=== PATIENT | female | born 1970 | race American Indian/Alaskan Native ===

== ENCOUNTER 2017-07-09 06:07 | Inpatient (IN) | payer OTHER ==
[2017-07-07 08:37] VITALS: BMI 36.0
[2017-07-09 07:02] LABS: BASO # 0.1 K/uL (0.0-0.2); BASO % 2.1 % (0.0-2.0); EOS # 0.2 K/uL (0.0-0.7); HEMOGLOBIN 12.9 g/dL (12.0-16.0); LYMPH # 1.4 K/uL (1.0-4.3); LYMPH % 22.2 % (20.0-40.0); MEAN CELL VOLUME 88.3 fl (81.0-99.0); MEAN CORPUSCULAR HEMOGLOBIN 28.9 pg (27.0-31.0); MEAN CORPUSCULAR HGB CONC 32.7 g/dL (33.0-37.0); MEAN PLATELET VOLUME 8.4 fl (7.2-11.7); MONO # 0.7 K/uL (0.0-0.8); MONO % 11.2 % (0.0-10.0); NEUT # 3.9 K/uL (1.8-7.0); NEUT % 61.5 % (50.0-75.0); RBC 4.45 Mil/uL (3.80-5.20); RED CELL DISTRIBUTION WIDTH 15.2 % (11.5-14.5); WHITE BLOOD COUNT 6.4 K/uL (4.8-10.8)
[2017-07-09 07:11] LABS: BLOOD UREA NITROGEN 18 mg/dl (7-17); CALCIUM 9.7 mg/dL (8.4-10.2); GFR AFRICAN-AMERICAN > 60; GFR NON-AFRICAN AMERICAN > 60
[2017-07-09] MEDS ORDERED: Midazolam 2 MG/2 ML VIAL ONE (07:14)
[2017-07-09] MEDS ORDERED: Propofol 10 mg/ml Inj (20 ML) ONE (07:14)
[2017-07-09] MEDS ORDERED: Rocuronium 10 mg/ml (5 ml) ONE ×2 (07:15→09:20)
[2017-07-09] MEDS ORDERED: ePHEDrine 50 mg/ml Inj ONE (07:15)
[2017-07-09] MEDS ORDERED: Succinylcholine 200 mg/10 ml Inj IV ONE (07:15)
[2017-07-09] MEDS ORDERED: Lidocaine 4% (Laryng-O-Jet) Kit MM ONE (07:16)
[2017-07-09] MEDS ORDERED: cefOXitin IV 1 gm in Dextrose 2 GM/100 ML BAG IVPB ONE (07:39)
[2017-07-09 07:43] LABS: PARTIAL THROMBOPLASTIN TIME 34.4 Seconds (25.6-37.1); PROTHROMBIN TIME 11.1 Seconds (9.8-13.1)
[2017-07-09] MEDS: Lactated Ringer's 1,000 ML IV ONE (07:45)
[2017-07-09] MEDS ORDERED: Lactated Ringer's 1,000 ML IV ONE ×5 (07:45→10:30)
--- NOTE | 2017-07-09 07:58 | CP.PCM.HP ---
History of Present Illness - History of Present Illness History of Present Illness: 47yo female with massively enlarged fibroid uterus. Pt with long h/o heavy menses as well as chronic pelvic pain. Discussed the R/B/A of surgery with patient and patient consented for EMELY. Present on Admission - Present on Admission Any Indicators Present on Admission: No History of DVT/PE: No History of Uncontrolled Diabetes: No Urinary Catheter: No Decubitus Ulcer Present: No Review of Systems - Constitutional Constitutional: As Per HPI - EENT Eyes: As Per HPI Past Patient History - Past Medical History & Family History Past Medical History?: No - Past Social History Smoking Status: Never Smoked - CARDIAC Hx Cardiac Disorders: No - PULMONARY Hx Respiratory Disorders: No - NEUROLOGICAL Hx Neurological Disorder: No - HEENT Hx HEENT Problems: No - RENAL Hx Chronic Kidney Disease: No - ENDOCRINE/METABOLIC Hx Endocrine Disorders: No - HEMATOLOGICAL/ONCOLOGICAL Hx Blood Disorders: No - INTEGUMENTARY Hx Dermatological Problems: No - MUSCULOSKELETAL/RHEUMATOLOGICAL Hx Musculoskeletal Disorders: No - GASTROINTESTINAL Hx Gastrointestinal Disorders: No - GENITOURINARY/GYNECOLOGICAL Hx Genitourinary Disorders: No - PSYCHIATRIC Hx Psychophysiologic Disorder: No - SURGICAL HISTORY Hx Surgeries: Yes Other/Comment: fibriods removed,fx right ankle,lipo-suction - ANESTHESIA Hx Anesthesia: Yes Hx Anesthesia Reactions: Yes (nausea) Hx Malignant Hyperthermia: No Has any member of the family had a problem w/ anesthesia?: No Meds Allergies/Adverse Reactions: Allergies Allergy/AdvReac Type Severity Reaction Status Date / Time No Known Allergies Allergy Verified 07/07/17 08:37 Physical Exam - Constitutional Appears: Well, No Acute Distress - ENT Exam ENT Exam: Mucous Membranes Moist - Respiratory Exam Respiratory Exam: Clear to Auscultation Bilateral, NORMAL BREATHING PATTERN - Cardiovascular Exam Cardiovascular Exam: REGULAR RHYTHM - GI/Abdominal Exam GI & Abdominal Exam: Mass, Normal Bowel Sounds, Soft. absent: Distended, Tenderness - Neurological Exam Neurological exam: Alert, Oriented x3 Results - Vital Signs Recent Vital Signs: Last Vital Signs Temp 98.1 F 07/09/17 07:33 Pulse 72 07/09/17 07:33 Resp 18 07/09/17 07:33 BP 131/72 07/09/17 07:33 Pulse Ox 98 07/09/17 07:33 - Labs Result Diagrams: 07/09/17 06:50 07/09/17 06:50 Labs: Laboratory Results - last 24 hr 07/09/17 07/09/17 07/09/17 06:50 06:50 06:50 WBC 6.4 RBC 4.45 Hgb 12.9 Hct 39.3 MCV 88.3 MCH 28.9 MCHC 32.7 L RDW 15.2 H Plt Count 340 MPV 8.4 Neut % (Auto) 61.5 Lymph % (Auto) 22.2 [place] % (Auto) 11.2 H Eos % (Auto) 3.0 Baso % (Auto) 2.1 H Neut # (Auto) 3.9 Lymph # (Auto) 1.4 [place] # (Auto) 0.7 Eos # (Auto) 0.2 Baso # (Auto) 0.1 PT 11.1 INR 1.0 APTT 34.4 Sodium Potassium Chloride Carbon Dioxide Anion Gap BUN Creatinine Est GFR ( Amer) Est GFR (Non-Af Amer) Random Glucose Calcium BBK History Checked No verified bt 07/09/17 06:50 WBC RBC Hgb Hct MCV MCH MCHC RDW Plt Count MPV Neut % (Auto) Lymph % (Auto) [place] % (Auto) Eos % (Auto) Baso % (Auto) Neut # (Auto) Lymph # (Auto) [place] # (Auto) Eos # (Auto) Baso # (Auto) PT INR APTT Sodium 144 Potassium 4.4 Chloride 105 Carbon Dioxide 23 Anion Gap 20 BUN 18 H Creatinine 0.8 Est GFR ( Amer) > 60 Est GFR (Non-Af Amer) > 60 Random Glucose 111 H Calcium 9.7 BBK History Checked Assessment & Plan - Assessment and Plan (Free Text) Assessment: Symptomatic Fibroid Uterus Plan: As above - Date & Time Date: 07/09/17 Time: 08:04
[2017-07-09] MEDS ORDERED: Dexamethasone 4 mg/1 ml ONE (08:23)
[2017-07-09] MEDS ORDERED: Vasopressin 20 Units/ml Inj ONE ×2 (08:53)
[2017-07-09] MEDS ORDERED: Neostigmine 1:1000 (1 mg/ml) Inj ONE (09:50)
[2017-07-09] MEDS ORDERED: Desflurane Inhalation Anesthetic Liq (240 ml) ONE (10:07)
[2017-07-09] MEDS ORDERED: Sodium Chloride 0.9% 500 ML IV ONE (10:15)
[2017-07-09] MEDS ORDERED: DiphenhydrAMINE 50 mg/ml Inj IVP PRN (10:54)
[2017-07-09] MEDS ORDERED: HYDROmorphone 0.5 mg/0.5 ml ISec IVP PRN (10:54)
[2017-07-09] MEDS ORDERED: Naloxone 0.4 mg/ml Inj (Adult) IVP PRN (10:55)
[2017-07-09] MEDS: Lactated Ringer's 1,000 ML IV SCH (20:45)
[2017-07-10] MEDS: Lactated Ringer's 1,000 ML IV SCH ×2 (04:52→14:48)
[2017-07-10 05:29] LABS: HEMOGLOBIN 7.2 g/dL (12.0-16.0); MEAN CELL VOLUME 88.9 fl (81.0-99.0); MEAN CORPUSCULAR HEMOGLOBIN 28.9 pg (27.0-31.0); MEAN CORPUSCULAR HGB CONC 32.6 g/dL (33.0-37.0); RBC 2.49 Mil/uL (3.80-5.20); RED CELL DISTRIBUTION WIDTH 14.9 % (11.5-14.5); WHITE BLOOD COUNT 9.4 K/uL (4.8-10.8)
[2017-07-10] MEDS ORDERED: ceFAZolin IV 2 gm in Dextrose 2 GM/50 ML BAG IVPB ONE (08:00)
[2017-07-10] MEDS: Enoxaparin 40 mg Syringe SC SCH (08:42)
[2017-07-10] MEDS: Oxycodone/Acetaminophen 5/325 mg Tab PO PRN ×2 (14:39→19:25)
[2017-07-11] MEDS: Lactated Ringer's 1,000 ML IV SCH ×5 (00:47→23:40)
--- NOTE | 2017-07-11 08:47 | PCM.SURG1 ---
Surgeon's Initial Post Op Note - Surgeon's Notes Surgeon: Randee Supervisor Telephone Information: Ricky Type of Anesthesia: General Endo Pre-Operative Diagnosis: Fibroid uterus Operative Findings: Massively enlarged fibroid uterus Post-Operative Diagnosis: Same Operation Performed: Supracervical hysterectomy, bilateral salpingo-oophorectomy Specimen/Specimens Removed: Uterus with tubes and ovaries bilaterally Estimated Blood Loss: EBL {In ML}: 1,000 Blood Products Given: N/A Drains Used: No Drains Post-Op Condition: Good Date of Surgery/Procedure: 07/09/17 Time of Surgery/Procedure: 08:00
--- NOTE | 2017-07-11 08:50 | CP.PCM.PN ---
Subjective - Date & Time of Evaluation Date of Evaluation: 07/10/17 Time of Evaluation: 10:00 - Subjective Subjective: Patient comfortable without complaints. Patient denies any chest pain or shortness of breath, nausea or vomiting, difficulty with pain. She reports a small amount of solids without difficulty. Patient reports pain adequately controlled. Objective - Vital Signs/Intake and Output Vital Signs (last 24 hours): Temp Pulse Resp BP Pulse Ox 99.7 F H 100 H 20 137/68 100 07/11/17 05:00 07/11/17 05:00 07/11/17 05:00 07/11/17 05:00 07/11/17 05:00 Intake and Output: 07/11/17 07/11/17 06:59 18:59 Intake Total 2500 Balance 2500 - Medications Medications: Current Medications Docusate Sodium (Colace) 100 mg PO BID [facility] Last Admin: 07/10/17 16:21 Dose: 100 mg Enoxaparin Sodium (Lovenox) 40 mg SC DAILY [facility] PRN Reason: Protocol Last Admin: 07/10/17 08:42 Dose: 40 mg Lactated Ringer's (Lactated Ringer's) 1,000 mls @ 125 mls/hr IV .Q8H [facility] Last Admin: 07/11/17 00:47 Dose: 125 mls/hr Ibuprofen (Motrin Tab) 600 mg PO Q6 PRN PRN Reason: Pain, moderate (4-7) Last Admin: 07/10/17 22:51 Dose: 600 mg Naloxone HCl (Narcan) 0.1 mg IVP Q2M PRN PRN Reason: Opiate reversal Ondansetron HCl (Zofran Inj) 4 mg IVP Q4 PRN PRN Reason: Nausea/Vomiting Oxycodone/Acetaminophen (Percocet 5/325 Mg Tab) 2 tab PO Q4 PRN PRN Reason: Pain, severe (8-10) Stop: 07/12/17 12:14 Last Admin: 07/10/17 19:25 Dose: 2 tab - Labs Labs: 07/10/17 05:10 07/09/17 06:50 PT 11.1 Seconds (9.8-13.1) 07/09/17 06:50 INR 1.0 (0.9-1.2) 07/09/17 06:50 APTT 34.4 Seconds (25.6-37.1) 07/09/17 06:50 - Constitutional Appears: Well, Non-toxic, No Acute Distress - Respiratory Exam Respiratory Exam: NORMAL BREATHING PATTERN - Cardiovascular Exam Cardiovascular Exam: REGULAR RHYTHM - GI/Abdominal Exam GI & Abdominal Exam: Soft. absent: Distended, Tenderness Additional comments: Incision clean, dry, intact. - Extremities Exam Extremities Exam: Normal Inspection. absent: Calf Tenderness Assessment and Plan - Assessment and Plan (Free Text) Assessment: Postop day #1 status post supracervical hysterectomy, bilateral salpingo- oophorectomy. Patient recovering well. Plan: Pain control Postoperative CBC Out of bed, ambulating Incentive spirometer Regular diet Prophylactic Lovenox, Venodyne's while in bed Patient recovering well. Discussed plan with patient and all patient questions answered.
--- NOTE | 2017-07-11 08:53 | CP.PCM.PN ---
Subjective - Date & Time of Evaluation Date of Evaluation: 07/11/17 Time of Evaluation: 08:51 - Subjective Subjective: Patient comfortable complaints. Patient ambulating without complication. Patient voiding without complication. Patient tolerating regular diet. Patient denies any chest pain or shortness of breath, nausea or vomiting. Patient reports pain well controlled. Objective - Vital Signs/Intake and Output Vital Signs (last 24 hours): Temp Pulse Resp BP Pulse Ox 99.7 F H 100 H 20 137/68 100 07/11/17 05:00 07/11/17 05:00 07/11/17 05:00 07/11/17 05:00 07/11/17 05:00 Intake and Output: 07/11/17 07/11/17 06:59 18:59 Intake Total 2500 Balance 2500 - Medications Medications: Current Medications Docusate Sodium (Colace) 100 mg PO BID [facility] Last Admin: 07/10/17 16:21 Dose: 100 mg Enoxaparin Sodium (Lovenox) 40 mg SC DAILY [facility] PRN Reason: Protocol Last Admin: 07/10/17 08:42 Dose: 40 mg Lactated Ringer's (Lactated Ringer's) 1,000 mls @ 125 mls/hr IV .Q8H [facility] Last Admin: 07/11/17 00:47 Dose: 125 mls/hr Ibuprofen (Motrin Tab) 600 mg PO Q6 PRN PRN Reason: Pain, moderate (4-7) Last Admin: 07/10/17 22:51 Dose: 600 mg Naloxone HCl (Narcan) 0.1 mg IVP Q2M PRN PRN Reason: Opiate reversal Ondansetron HCl (Zofran Inj) 4 mg IVP Q4 PRN PRN Reason: Nausea/Vomiting Oxycodone/Acetaminophen (Percocet 5/325 Mg Tab) 2 tab PO Q4 PRN PRN Reason: Pain, severe (8-10) Stop: 07/12/17 12:14 Last Admin: 07/10/17 19:25 Dose: 2 tab - Labs Labs: 07/10/17 05:10 07/09/17 06:50 PT 11.1 Seconds (9.8-13.1) 07/09/17 06:50 INR 1.0 (0.9-1.2) 07/09/17 06:50 APTT 34.4 Seconds (25.6-37.1) 07/09/17 06:50 - Constitutional Appears: Well, Non-toxic, No Acute Distress - Respiratory Exam Respiratory Exam: Clear to Ausculation Bilateral, NORMAL BREATHING PATTERN - Cardiovascular Exam Cardiovascular Exam: REGULAR RHYTHM - GI/Abdominal Exam Additional comments: Incision clean, dry, intact. Abdomen soft, nondistended, appropriate diffuse tenderness. No rebound, no guarding. Normal bowel sounds. - Extremities Exam Extremities Exam: Normal Inspection. absent: Calf Tenderness Assessment and Plan - Assessment and Plan (Free Text) Assessment: Postoperative day #2 status post supracervical hysterectomy, bilateral salpingo- oophorectomy. Patient recovering well. Postoperative anemia asymptomatic at this time. Plan: Pain control Out of bed, ambulating Regular diet Ferrous sulfate Anticipate discharge home later today.
[2017-07-11] MEDS: Enoxaparin 40 mg Syringe SC SCH (08:59)
[2017-07-11] MEDS: Oxycodone/Acetaminophen 5/325 mg Tab PO PRN ×2 (12:43→20:29)
--- NOTE | 2017-07-11 15:56 | OP ---
PROCEDURE DATE: 07/09/2017 PREOPERATIVE DIAGNOSIS: Symptomatic fibroid uterus. POSTOPERATIVE DIAGNOSIS: Symptomatic fibroid uterus. OPERATION PERFORMED: Supracervical hysterectomy, bilateral salpingo-oophorectomy. SURGEON: Saleem Jeff MD PLUMBING SERVICE TECHNICIAN: Dr. Carlton García. Dr. García was present from the beginning of the procedure to the end of procedure. Dr. García was integral in exposing the surgical field, controlling intraoperative bleeding, and manual removal of surgical specimen. TYPE OF ANESTHESIA: General anesthesia. ESTIMATED BLOOD LOSS: 1000 mL. FLUIDS: 2500 mL lactated Ringer's. URINE OUTPUT: 400 mL of clear urine at the end of procedure. COMPLICATIONS: None. DESCRIPTION OF PROCEDURE: The patient was taken to the operating room where general anesthesia was found to be adequate. The patient was prepped and draped in the normal sterile fashion in the dorsal supine position. A Pfannenstiel skin incision was made with a scalpel. This was carried down through to the underlying layer of fascia with the scalpel. Midline defect was made in the fascial layer with the scalpel. The fascial incision was then extended sharply bilaterally with curved Mckay scissors. The fascial layer was from the rectus muscles both bluntly and sharply with curved Mckay scissors. The rectus muscles were at the midline. The peritoneum was then identified, tented up with Linda clamps x2, and entered sharply with Metzenbaum scissors. This peritoneal incision was then extended superiorly and inferiorly with good visualization of the urinary bladder. Multiple adhesions in the abdomen and pelvis were removed bluntly and sharply under direct visualization. At this point in the operation, due to the size of the uterus and uterine fibroids, decision was made to removed fibroids, so visualization of appropriate pedicles was feasible. The uterus was injected with a vasopressin solution. The vasopressin solution was 20 units vasopressin diluted in 100 mL of normal saline. The uterus was incised at the anterior surface with the scalpel. Multiple uterine fibroids were removed from the uterus. The uterine incision was repaired with 0 Vicryl in running, lock fashion. Attention was then turned to the round ligaments. The round ligaments were identified bilaterally, transected with LigaSure under direct visualization. The anterior surface of the broad ligament was sharply dissected off the anterior surface of the uterus. The infundibulopelvic ligaments were identified bilaterally, transected with LigaSure device. Reinspection of these pedicles proved hemostasis. The uterine arteries were identified bilaterally, skeletonized bilaterally, clamped with Lamonte clamps x2 bilaterally. Suture ligated with 0 Vicryl x2 bilaterally. Reinspection of these pedicles proved hemostasis. The uterus was clamped with Phaneuf clamps bilaterally, was completed with scalpel bilaterally. These pedicles were suture ligated with 0 Vicryl bilaterally. At this point, the surgery decision for supracervical made due to deep pelvis. The uterus was removed from the cervix at the level of the internal os using electrocautery. The cervical stump was suture ligated with 0 Vicryl with the series of [id number] 0 Vicryl sutures. Reinspection of this pedicle proved hemostasis. The abdomen and pelvis were irrigated with copious amounts of warm normal saline. Reinspection of all surgical pedicles proved in hemostasis. All instruments were removed from the patient. The peritoneal layer was closed with a running stitch of 2-0 chromic. The rectus muscles were reapproximated with a running stitch of 2-0 Chromic. The fascial layer was closed with a running stitch of 0 Vicryl. Subcutaneous tissue was closed with a running stitch 3-0 Plain. Skin was closed with ky. The patient tolerated the procedure well. All sponge count, lap counts and needle counts were correct x2. The patient was given 2 g of Ancef just prior to beginning of the procedure. There were no complications. The patient was taken to the recovery room awake and in stable condition. Saleem Jeff MD
[2017-07-12 05:23] VITALS: RESP 20
--- NOTE | 2017-07-12 06:30 | CP.PCM.DIS ---
Provider - Provider Date of Admission: 07/09/17 12:13 Attending physician: Saleem Jeff MD Primary care physician: Maria Elena Hernandez MD Time Spent in preparation of Discharge (in minutes): 25 Diagnosis - Discharge Diagnosis (1) History of hysterectomy, supracervical Status: Acute (2) History of uterine fibroid Status: Acute (3) Anemia Status: Acute Hospital Course - Lab Results Lab Results: Most Recent Lab Values WBC 9.4 K/uL (4.8-10.8) 07/10/17 05:10 RBC 2.49 Mil/uL (3.80-5.20) L 07/10/17 05:10 Hgb 7.2 g/dL (12.0-16.0) L D 07/10/17 05:10 Hct 22.2 % (34.0-47.0) L 07/10/17 05:10 MCV 88.9 fl (81.0-99.0) 07/10/17 05:10 MCH 28.9 pg (27.0-31.0) 07/10/17 05:10 MCHC 32.6 g/dL (33.0-37.0) L 07/10/17 05:10 RDW 14.9 % (11.5-14.5) H 07/10/17 05:10 Plt Count 228 K/uL (130-400) D 07/10/17 05:10 MPV 8.4 fl (7.2-11.7) 07/09/17 06:50 Neut % (Auto) 61.5 % (50.0-75.0) 07/09/17 06:50 Lymph % (Auto) 22.2 % (20.0-40.0) 07/09/17 06:50 [place] % (Auto) 11.2 % (0.0-10.0) H 07/09/17 06:50 Eos % (Auto) 3.0 % (0.0-4.0) 07/09/17 06:50 Baso % (Auto) 2.1 % (0.0-2.0) H 07/09/17 06:50 Neut # (Auto) 3.9 K/uL (1.8-7.0) 07/09/17 06:50 Lymph # (Auto) 1.4 K/uL (1.0-4.3) 07/09/17 06:50 [place] # (Auto) 0.7 K/uL (0.0-0.8) 07/09/17 06:50 Eos # (Auto) 0.2 K/uL (0.0-0.7) 07/09/17 06:50 Baso # (Auto) 0.1 K/uL (0.0-0.2) 07/09/17 06:50 PT 11.1 Seconds (9.8-13.1) 07/09/17 06:50 INR 1.0 (0.9-1.2) 07/09/17 06:50 APTT 34.4 Seconds (25.6-37.1) 07/09/17 06:50 Sodium 144 mmol/l (132-148) 07/09/17 06:50 Potassium 4.4 MMOL/L (3.6-5.0) 07/09/17 06:50 Chloride 105 mmol/L (98-107) 07/09/17 06:50 Carbon Dioxide 23 mmol/L (22-30) 07/09/17 06:50 Anion Gap 20 (10-20) 07/09/17 06:50 BUN 18 mg/dl (7-17) H 07/09/17 06:50 Creatinine 0.8 mg/dl (0.7-1.2) 07/09/17 06:50 Est GFR ( Amer) > 60 07/09/17 06:50 Est GFR (Non-Af Amer) > 60 07/09/17 06:50 Random Glucose 111 mg/dL (65-105) H 07/09/17 06:50 Calcium 9.7 mg/dL (8.4-10.2) 07/09/17 06:50 Blood Type B POSITIVE 07/09/17 06:50 Blood Type Confirm B POSITIVE 07/09/17 07:50 Antibody Screen Negative 07/09/17 06:50 BBK History Checked No verified bt 07/09/17 06:50 - Hospital Course Hospital Course: 47 yo female pmhx heavy menses and chronic pelvic pain due to enlarged fibroids had supracervical hysterectomy with bilateral salpingo-oophorectomy surgery on . Pt's H&H ON 07/10/17 was 7.2/22.2. Denies any symptoms of anemia and pt's vitals have been stable. Pt has the ky in the lower abdomen and will need to f/u with PMD for wound check. Pt is discharged home with ferrous sulfate 325 mg po bid #90, percocet 5/325 mg po q4hr prn #40 and colace 100 mg po bid #60. Today is POD#3, pt seen and examined at bedside. Pt was resting compfortably, NAD. Pt is tolerating PO food well. Reports passing gas per rectum but no BM yet. Voiding without difficulty. OOB/ambulating well with dizziness. Denies nausea, vomiting, headache, dizziness, blurry vision, chest pain, dyspnea or calf pain. No fever or chills. Discharge Exam - Head Exam Head Exam: NORMAL INSPECTION, NORMOCEPHALIC - Respiratory Exam Respiratory Exam: Clear to PA & Lateral, NORMAL BREATHING PATTERN. absent: Rales, Rhonchi, Wheezes - Cardiovascular Exam Cardiovascular Exam: REGULAR RHYTHM, RRR, +S1, +S2 - GI/Abdominal Exam GI & Abdominal Exam: Soft. absent: Distended, Tenderness Additional comments: [place] intact in lower abdomen incision site. Incision is clean, dry and intact. No erythema, swelling or dehiscence seen. - Extremities Exam Extremities exam: normal inspection - Neurological Exam Neurological exam: Alert, Oriented x3 Discharge Plan - Discharge Medications Prescriptions: Docusate [Colace] 100 mg PO BID #40 cap Ferrous Sulfate [Ferosul] 325 mg PO BID #90 tablet oxyCODONE/Acetaminophen [Percocet 5/325 mg Tab] 1 tab PO Q4 PRN #40 tab PRN Reason: Pain, Severe (8-10) - Follow Up Plan Condition: GOOD Disposition: HOME/ ROUTINE Patient education suggested?: Yes Instructions: Uterine Fibroid Removal (DC), Hysterectomy, Abdominal or Laparoscopic Surgery, Surgical Wound (DC) Additional Instructions: Please follow up with your primary care doctor for wound check and staple removal. Referrals: Maria Elena Rivero MD [Primary Care Provider] -
[2017-07-12] MEDS: Enoxaparin 40 mg Syringe SC SCH (08:34)
[2017-07-12 08:37] VITALS: TEMP 99
[2017-07-12 08:50] VITALS: BP 140/74; PULSE 88; O2SAT 98
== END 2017-07-12 16:16 | disposition home or self-care (01) | DRG 743 ==
LOC: H.OPSURG 06:07 → H.PEDS 12:13
PROVIDERS: ADMIT Obstetrics & Gynecology; ATTEND Obstetrics & Gynecology
PROC: 0UT20ZZ Resection of Bilateral Ovaries, Open Approach (ICD-10-PCS; 2017-07-09)
PROC: 0UT70ZZ Resection of Bilateral Fallopian Tubes, Open Approach (ICD-10-PCS; 2017-07-09)
PROC: 0UT90ZL Resection of Uterus, Supracervical, Open Approach (ICD-10-PCS; principal; 2017-07-09 07:45)
DX: D25.9 Leiomyoma of uterus, unspecified (principal); D64.9 Anemia, unspecified